=== PATIENT | female | born 2000 | race Caucasian/White ===

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

== ENCOUNTER 2023-12-04 10:00 | Emergency (ER) | payer OTHER ==
[2023-12-04 10:05] VITALS: RESP 18
--- NOTE | 2023-12-04 10:34 | ED ---
Eye Problem HPI - General Chief complaint: Eye Problems Stated complaint: poss L eye infection,R ear issue Time Seen by Provider: 12/04/23 10:00 Source: patient, RN notes reviewed Mode of arrival: ambulatory Limitations: no limitations - History of Present Illness Initial comments: 23-year-old female presenting with left eye drainage x 2 days. She is also complaining of right ear pain x 1 day. States she is "getting over a cold". She describes her left eye is red and irritated with surrounding crusting worse in the morning. She states today her right ear has started to become painful and "foggy". Denies fever, vision loss. - Related Data Previous Rx's Medication Instructions Recorded Ondansetron Odt [Zofran Odt] 4 mg PO Q8HR PRN #10 tab 08/07/16 Amoxic-Pot Clav 875-125Mg 1 tab PO Q12HR 7 Days #14 tab 12/04/23 [Augmentin 875-125] Ofloxacin 0.3% Ophth Soln [Ocuflox 2 drops LEFT EYE QID 7 Days #10 ml 12/04/23 Ophth Soln] Allergies Allergy/AdvReac Type Severity Reaction Status Date / Time No Known Allergies Allergy Verified 12/04/23 10:05 Review of Systems ROS Statement: Those systems with pertinent positive or pertinent negative responses have been documented in the HPI. ROS Other: All systems not noted in ROS Statement are negative. Past Medical History Past Medical History: No Reported History History of Any Multi-Drug Resistant Organisms: None Reported Past Surgical History: Adenoidectomy, Tonsillectomy Past Psychological History: No Psychological Hx Reported Smoking Status: Never smoker Past Alcohol Use History: Occasional Past Drug Use History: None Reported General Exam Limitations: no limitations General appearance: alert, in no apparent distress Head exam: Present: atraumatic, normocephalic, normal inspection Eye exam: Present: EOMI, conjunctival injection, other (Left conjunctiva injected with scant amount of discharge in inner canthus. No surrounding erythema or edema). Absent: scleral icterus, periorbital swelling, periorbital tenderness Pupils: Present: normal accommodation ENT exam: Present: normal oropharynx, mucous membranes moist, normal external ear exam. Absent: TM's normal bilaterally (Right TM is erythematous and bulging. No mastoid tenderness or erythema) Course Vital Signs 12/04/23 10:02 Temperature 98.5 F Pulse Rate 88 Respiratory 18 Rate Blood Pressure 146/80 O2 Sat by Pulse 97 Oximetry Medical Decision Making - Medical Decision Making Was pt. sent in by a medical professional or institution ([facility], [employer], urgent care, hospital, or halfway...) When possible be specific @ -No Did you speak to anyone other than the patient for history (EMS, parent, family, police, friend...)? What history was obtained from this source @ -No Did you review nursing and triage notes (agree or disagree)? Why? @ -I reviewed and agree with nursing and triage notes Were old charts reviewed (outside hosp., previous admission, EMS record, old EKG, old radiological studies, urgent care reports/EKG's, halfway records)? Report findings @ -No old charts were reviewed Differential Diagnosis (chest pain, altered mental status, abdominal pain women, abdominal pain men, vaginal bleeding, weakness, fever, dyspnea, syncope, headache, dizziness, GI bleed, back pain, seizure, CVA, palpatations, mental health, musculoskeletal)? @ -Otitis media, otitis externa, bacterial conjunctivitis, viral conjunctivitis, corneal abrasion, viral URI, TM perforation, corneal ulceration EKG interpreted by me (3pts min.). @ -None X-rays interpreted by me (1pt min.). @ -None done CT interpreted by me (1pt min.). @ -None done U/S interpreted by me (1pt. min.). @ -None done What testing was considered but not performed or refused? (CT, X-rays, U/S, labs)? Why? @ -None What meds were considered but not given or refused? Why? @ -None Did you discuss the management of the patient with other professionals (professionals i.e. [facility], [employer], lab, RT, psych nurse, social science teacher, art consultant, teacher, environmental conservation officer, casey saw operator)? Give summary @ -No Was smoking cessation discussed for >3mins.? @ -No Was critical care preformed (if so, how long)? @ -No Were there social determinants of health that impacted care today? How? (Homelessness, low income, unemployed, alcoholism, drug addiction, transportation, low edu. Level, literacy, decrease access to med. care, alf, rehab)? @ -No Was there de-escalation of care discussed even if they declined (Discuss DNR or withdrawal of care, Hospice)? DNR status @ -No What co-morbidities impacted this encounter? (DM, HTN, Smoking, COPD, CAD, Cancer, CVA, ARF, Chemo, Hep., AIDS, mental health diagnosis, sleep apnea, morbid obesity)? @ -None Was patient admitted / discharged? Hospital course, mention meds given and route, prescriptions, significant lab abnormalities, going to OR and other pertinent info. @ -Patient was discharged. Patient was seen and evaluated for left eye drainage and right otalgia. Patient has been ill with URI recently. No red flag symptoms. Vitals are within normal limits. Physical examination is remarkable for left eye conjunctival injection with scant amount of discharge and inner canthus. Right TM is erythematous and bulging. Discussed diagnosis of otitis- conjunctivitis syndrome with patient. Prescribed Augmentin and ofloxacin to pharmacy. Supportive care discussed. Strict return/alarm symptoms discussed with patient in detail and she shows understanding and agrees with plan. Case discussed with my attending Dr. George. Patient discharged in stable condition Undiagnosed new problem with uncertain prognosis? @ -No Drug Therapy requiring intensive monitoring for toxicity (Heparin, Nitro, Insulin, Cardizem)? @ -No Were any procedures done? @ -No Diagnosis/symptom? @ -Otitis conjunctivitis syndrome Acute, or Chronic, or Acute on Chronic? @ -Acute Uncomplicated (without systemic symptoms) or Complicated (systemic symptoms)? @ -Uncomplicated Side effects of treatment? @ -No Exacerbation, Progression, or Severe Exacerbation? @ -No Poses a threat to life or bodily function? How? (Chest pain, [place], [place], pneumonia, PE, COPD, DKA, ARF, appy, cholecystitis, CVA, Diverticulitis, Homicidal, Suicidal, threat to staff... and all critical care pts) @ -Low likelihood Disposition Clinical Impression: Otitis media of right ear, Bacterial conjunctivitis of left eye Disposition: HOME SELF-CARE Instructions (If sedation given, give patient instructions): Ear Infection (ED), Conjunctivitis (ED) Additional Instructions: Please return to the Emergency Department if symptoms worsen or any other concerns. Prescriptions: Amoxic-Pot Clav 875-125Mg [Augmentin 875-125] 1 tab PO Q12HR 7 Days #14 tab Ofloxacin 0.3% Ophth Soln [Ocuflox Ophth Soln] 2 drops LEFT EYE QID 7 Days #10 ml Is patient prescribed a controlled substance at d/c from ED?: No Referrals: Billie Bean MD [Primary Care Provider] - 1-2 days Time of Disposition: 10:34
[2023-12-04 11:15] VITALS: BP 128/76; PULSE 76; TEMP 98.1
== END 2023-12-04 11:15 | disposition home or self-care (01) ==
LOC: EC 10:00
DX: H66.91 Otitis media, unspecified, right ear (principal); H10.89 Other conjunctivitis
CPT/HCPCS: 99283